=== PATIENT | male | born 1950 | race Caucasian/White ===

== ENCOUNTER 2017-05-03 13:39 | Emergency (ER) | payer MEDICARE, MEDICAID ==
[~2017-05-03] VITALS: Ht 177.8 cm; Wt 109.1 kg
[2017-05-03 13:45] VITALS: BP 153/79
[2017-05-03] MEDS ORDERED: TETanus/Pertussis (Acell)/Diphther VAC/PF (Tdap-Adult) 0.5ml syringe IM ONE (14:15)
[2017-05-03] MEDS ORDERED: BUPIVAcaine 0.5% inj/PF 30 ml vial IJ ONE (14:15)
[2017-05-03] MEDS ORDERED: HYDROcodone/acetaminophen 10/325mg tab PO ONE (14:15)
[2017-05-03] MEDS ORDERED: bacitracin 15gm ointment TP STA (16:34)
[2017-05-03] MEDS ORDERED: cephalexin 250mg capsule PO ONE (16:35)
[2017-05-03] MEDS ORDERED: CEPH500C2 PO (16:38)
[2017-05-03] MEDS ORDERED: HYDR-565 PO (16:38)
[2017-05-03] MEDS ORDERED: NAPR-56 PO (16:38)
== END 2017-05-03 16:58 | disposition home or self-care (01) ==
LOC: ER 13:39
DX: S62.511A Displaced fracture of proximal phalanx of right thumb, initial encounter for closed fracture (principal); S61.011A Laceration without foreign body of right thumb without damage to nail, initial encounter; E78.00 Pure hypercholesterolemia, unspecified; M19.90 Unspecified osteoarthritis, unspecified site; Z88.1 Allergy status to other antibiotic agents; Z98.890 Other specified postprocedural states; Z79.899 Other long term (current) drug therapy; W31.2XXA Contact with powered woodworking and forming machines, initial encounter; Y93.89 Activity, other specified; Y92.89 Other specified places as the place of occurrence of the external cause; Y99.8 Other external cause status
CPT/HCPCS: 29125; 73140; 90471; 90715; 99284; A6255; A6449; J3490; 12002; 96372; 96374

== ENCOUNTER 2017-05-13 13:56 | Outpatient (CLI) | payer MEDICARE, MEDICAID ==
[~2017-05-13 13:56] MED LIST: CEPH500C2 PO; HYDR-565 PO; NAPR-56 PO
[2017-05-13 14:09] VITALS: BP 139/79
== END 2017-05-13 14:50 | disposition home or self-care (01) ==
LOC: ORTHO 13:56
PROVIDERS: ATTEND Nurse Practitioner Family
DX: S61.011A Laceration without foreign body of right thumb without damage to nail, initial encounter (principal); E78.00 Pure hypercholesterolemia, unspecified; G89.29 Other chronic pain; J44.9 Chronic obstructive pulmonary disease, unspecified; M06.9 Rheumatoid arthritis, unspecified; Z88.0 Allergy status to penicillin; X58.XXXA Exposure to other specified factors, initial encounter; Y93.89 Activity, other specified; Y92.89 Other specified places as the place of occurrence of the external cause; Y99.8 Other external cause status
CPT/HCPCS: 29125; A6449

== ENCOUNTER 2017-05-27 13:06 | Outpatient (CLI) | payer MEDICARE, MEDICAID ==
[2017-05-27 13:11] VITALS: BP 138/75
== END 2017-05-27 13:50 | disposition home or self-care (01) ==
LOC: ORTHO 13:06
PROVIDERS: ATTEND Nurse Practitioner Family
DX: S61.011D Laceration without foreign body of right thumb without damage to nail, subsequent encounter (principal); E78.00 Pure hypercholesterolemia, unspecified; G89.29 Other chronic pain; J44.9 Chronic obstructive pulmonary disease, unspecified; M06.9 Rheumatoid arthritis, unspecified; Z88.0 Allergy status to penicillin; X58.XXXD Exposure to other specified factors, subsequent encounter
CPT/HCPCS: 29260; 73140

== ENCOUNTER 2017-05-28 14:31 | Outpatient (CLI) | payer MEDICARE, MEDICAID ==
[~2017-05-28] VITALS: Ht 177.8 cm; Wt 109.8 kg
[2017-05-28 14:30] VITALS: BP 130/84
== END 2017-05-28 15:05 | disposition home or self-care (01) ==
LOC: ORTHO 14:31
PROVIDERS: ATTEND Nurse Practitioner Family
DX: Z01.818 Encounter for other preprocedural examination (principal); S62.609 Fracture of unspecified phalanx of unspecified finger; S61.011D Laceration without foreign body of right thumb without damage to nail, subsequent encounter; E78.00 Pure hypercholesterolemia, unspecified; G89.29 Other chronic pain; J44.9 Chronic obstructive pulmonary disease, unspecified; K21.9 Gastro-esophageal reflux disease without esophagitis; Z87.11 Personal history of peptic ulcer disease; Z88.0 Allergy status to penicillin; Z91.19 Patient's noncompliance with other medical treatment and regimen; X58.XXXD Exposure to other specified factors, subsequent encounter
CPT/HCPCS: 99214

== ENCOUNTER 2017-06-20 10:14 | Outpatient (CLI) | payer MEDICARE, MEDICAID ==
[2017-06-20 10:29] VITALS: BP 148/90
== END 2017-06-20 11:00 | disposition home or self-care (01) ==
LOC: ORTHO 10:14
PROVIDERS: ATTEND Nurse Practitioner Family
DX: Z01.818 Encounter for other preprocedural examination (principal); S61.011D Laceration without foreign body of right thumb without damage to nail, subsequent encounter; E78.00 Pure hypercholesterolemia, unspecified; G89.29 Other chronic pain; J44.9 Chronic obstructive pulmonary disease, unspecified; M06.9 Rheumatoid arthritis, unspecified; Z88.0 Allergy status to penicillin; Z91.19 Patient's noncompliance with other medical treatment and regimen; Z79.899 Other long term (current) drug therapy; X58.XXXD Exposure to other specified factors, subsequent encounter
CPT/HCPCS: 73140; 99213

== ENCOUNTER 2017-07-11 10:25 | Outpatient (CLI) | payer MEDICARE, MEDICAID ==
[2017-07-11 10:24] VITALS: BP 139/81
== END 2017-07-11 11:00 | disposition home or self-care (01) ==
LOC: ORTHO 10:25
PROVIDERS: ATTEND Nurse Practitioner Family
DX: Z01.818 Encounter for other preprocedural examination (principal); S62.609D Fracture of unspecified phalanx of unspecified finger, subsequent encounter for fracture with routine healing; E78.00 Pure hypercholesterolemia, unspecified; G89.29 Other chronic pain; J44.9 Chronic obstructive pulmonary disease, unspecified; M06.9 Rheumatoid arthritis, unspecified; Z88.0 Allergy status to penicillin; Z91.19 Patient's noncompliance with other medical treatment and regimen; X58.XXXD Exposure to other specified factors, subsequent encounter
CPT/HCPCS: 73140; 99212

== ENCOUNTER 2018-08-17 17:01 | Inpatient (IN) | payer MEDICARE, MEDICAID ==
[~2018-08-17] VITALS: Ht 177.8 cm; Wt 77.0 kg
--- NOTE | 2018-08-17 17:52 | NUR ---
Patient ambulated to room from lobby. Patient don gown, on cessation systems outreach specialist. Abd distended and firm. Patient reports pain 10/10. Patient report last normal BM yesterday. Patient sitting on edge of bed for comfort.
[2018-08-17] MEDS ORDERED: morphine 4 MG/ML inj SYRINge IV ONE (17:55)
[2018-08-17] MEDS ORDERED: ondansetron/PF 4mg/2ml inj IV ONE (17:55)
[2018-08-17 18:10] LABS: RED BLOOD COUNT 2.97 X10'6 (4.70-6.10)
[2018-08-17 18:16] LABS: ALANINE AMINOTRANSFERASE 24 U/L (12-78); ALBUMIN 3.4 G/DL (3.4-5.0); ALBUMIN/GLOBULIN RATIO 0.9 (1.1-1.5); ALKALINE PHOSPHATASE 89 IU/L (46-116); ANION GAP 8 (8-16); ASPARTATE AMINO TRANSFERASE 28 U/L (10-37); BILIRUBIN,TOTAL 0.7 MG/DL (0.1-1.0); BLOOD UREA NITROGEN 11 MG/DL (7-18); CALCIUM 8.9 MG/DL (8.5-10.1); CHLORIDE 104 MMOL/L (99-107); GLUCOSE 116 MG/DL (70-104); LIPASE 60 U/L (73-393); POTASSIUM 4.4 MMOL/L (3.5-5.1); SODIUM 139 MMOL/L (135-145); TOTAL PROTEIN 7.4 G/DL (6.4-8.2); eGFR 66 ML/MIN
[2018-08-17 18:17] LABS: INR 1.2 INR
[2018-08-17 18:19] LABS: PARTIAL THROMBOPLASTIN TIME 30 SECONDS (22-32)
[2018-08-17] MEDS ORDERED: HYDROmorphone 1 mg/ml syringe IV ONE (18:30)
[2018-08-17 18:39] LABS: HEMATOCRIT 28.3 % (42.0-52.0); HEMOGLOBIN 8.8 g/dl (14.0-17.9); MEAN CORPUSCULAR VOLUME 95.2 FL (78-98); WHITE BLOOD COUNT 175.2 X10'3 (4.5-11.0)
[2018-08-17 18:40] LABS: MEAN CORPUSCULAR HEMOGLOBIN 29.6 PG (27.0-31.0); MEAN CORPUSCULAR HGB CONC 31.1 g/dL (33.0-36.5); MEAN PLATELET VOLUME 10.3 FL (7.4-10.4); PLATELET COUNT 643 X10'3 (140-440); RED CELL DISTRIBUTION WIDTH 16.7 % (11.5-14.5)
[2018-08-17] MEDS ORDERED: normal saline 1000ML IV soln IVB ONE (18:40)
[2018-08-17 19:08] LABS: ANISOCYTOSIS 1+; NUCLEATED RED BLOOD CELLS 3 /100WBC (0-0); PLATELET ESTIMATE INCREASED; TOTAL CELLS COUNTED 100
[2018-08-17 19:09] LABS: GIANT PLATELET FEW; SMUDGE CELLS 1+
[2018-08-17 19:10] LABS: POLYCHROMASIA 1+
[2018-08-17] MEDS ORDERED: iohexol 350MG/ML 100ml bottle IV ONE (19:59)
[2018-08-17] MEDS: normal saline 1000ml 1,000 ML IV SCH (21:03)
[2018-08-17] MEDS ORDERED: HYDROmorphone 1 mg/ml syringe IV PRN (21:05)
[2018-08-17] MEDS ORDERED: HYDROmorphone inj. 0.5 MG/0.5 ML DISP.SYRIN IV PRN (21:05)
[2018-08-17] MEDS ORDERED: acetaminophen 325mg tablet PO PRN (21:05)
[2018-08-17] MEDS ORDERED: ondansetron/PF 4mg/2ml inj IV PRN (21:05)
[2018-08-17] MEDS ORDERED: vancomycin/NS 1 GM ADD-VANTAGE 250 ML IV ONE (21:45)
[2018-08-17] MEDS ORDERED: midazolam 2 mg/2 ml injection ONE (22:11)
[2018-08-17] MEDS ORDERED: fentaNYL /PF 50mcg/ml 5ml ampule ONE (22:11)
[2018-08-17] MEDS ORDERED: gentamicin 40 MG/1 ML inj ONE (22:18)
[2018-08-17] MEDS ORDERED: clindamycin phosphate 150mg/ml inj. ONE (22:18)
[2018-08-17] MEDS ORDERED: phenylephrine 10mg/ml inj. ONE (22:22)
[2018-08-17] MEDS ORDERED: LIDOcaine 2% (20mg/ml) 5ml vial ONE (22:22)
[2018-08-17] MEDS ORDERED: rocuronium 10mg/ml inj IV ONE (22:22)
[2018-08-17] MEDS ORDERED: LIDOcaine 1%/PF 5ML 10 MG/ML VIAL ONE (22:22)
[2018-08-17] MEDS ORDERED: epiNEPHrine 1 mg/ml inj ONE (22:22)
[2018-08-17] MEDS ORDERED: etomidate 2mg/ml inj. ONE (22:22)
[2018-08-17] MEDS ORDERED: sevoflurane 250ml liquid IH ONE (22:51)
[2018-08-17] MEDS ORDERED: ondansetron/PF 4mg/2ml inj ONE (22:51)
[2018-08-18] VITALS (22 sets, daily range): BP systolic 100–195; BP diastolic 44–137
[2018-08-18 00:01] LABS: ISTAT CREATININE 0.9 mg/dL (0.8-1.3); ISTAT HGB 9.2 g/dl (14.0-18.0); ISTAT IONIZED CALCIUM 1.1 mmol/L (1.03-1.32); ISTAT K 4.1 mmol/L (3.5-5.1); POC BUN/CREATININE RATIO 11.1 (5.4-32.0)
[2018-08-18] MEDS ORDERED: sugammadex 200mg/2ml injection IV ONE (00:37)
[2018-08-18] MEDS ORDERED: morphine 10mg/ml inj. ONE (00:51)
[2018-08-18] MEDS ORDERED: potassium CL 20mEq in D5-1/2NS 1,000 ML IV SCH (00:59)
[2018-08-18] MEDS ORDERED: CADD PCA waste documentation MC PRN (01:00)
[2018-08-18] MEDS ORDERED: ondansetron/PF 4mg/2ml inj IV PRN (01:00)
[2018-08-18] MEDS ORDERED: naloxone 0.4 mg/ml inj IV PRN (01:00)
[2018-08-18] MEDS ORDERED: fentaNYL/PF 50MCG/1 ML 2ML syringe ONE (01:05)
[2018-08-18] MEDS ORDERED: nitroGLYCERIN-Tridil 50MG/D5W 250 ML IV PRN (01:25)
[2018-08-18] MEDS ORDERED: nitroGLYCERIN-Tridil 50MG/D5W 250 ML IV ONE (01:25)
[2018-08-18 01:53] LABS: HEMATOCRIT 26.3 % (42.0-52.0); MEAN CORPUSCULAR HEMOGLOBIN 28.7 PG (27.0-31.0); MEAN CORPUSCULAR HGB CONC 30.4 g/dL (33.0-36.5); MEAN CORPUSCULAR VOLUME 94.4 FL (78-98); MEAN PLATELET VOLUME 10.3 FL (7.4-10.4); PLATELET COUNT 427 X10'3 (140-440); RED BLOOD COUNT 2.78 X10'6 (4.70-6.10); RED CELL DISTRIBUTION WIDTH 16.6 % (11.5-14.5)
[2018-08-18 01:55] LABS: ALANINE AMINOTRANSFERASE 17 U/L (12-78); ALBUMIN 2.9 G/DL (3.4-5.0); ALKALINE PHOSPHATASE 67 IU/L (46-116); ANION GAP 10 (8-16); ASPARTATE AMINO TRANSFERASE 20 U/L (10-37); BILIRUBIN,TOTAL 0.3 MG/DL (0.1-1.0); BLOOD UREA NITROGEN 12 MG/DL (7-18); BUN/CREATININE RATIO 10.4 (5.4-32.0); CALCIUM 7.5 MG/DL (8.5-10.1); CHLORIDE 110 MMOL/L (99-107); CREATININE 1.15 MG/DL (0.60-1.10); GLUCOSE 155 MG/DL (70-104); MAGNESIUM 1.5 MG/DL (1.5-2.4); PHOSPHORUS 4.7 MG/DL (2.3-4.5); POTASSIUM 4.5 MMOL/L (3.5-5.1); SODIUM 141 MMOL/L (135-145); TOTAL CARBON DIOXIDE 20.9 MMOL/L (24-32); TOTAL PROTEIN 5.8 G/DL (6.4-8.2); eGFR 63 ML/MIN
[2018-08-18 01:56] LABS: INR 1.3 INR; PARTIAL THROMBOPLASTIN TIME 34 SECONDS (22-32)
[2018-08-18] MEDS: HYDROmorphone/NS 1 mg/ml CADD 50 ML IV SCH ×7 (01:58→13:00)
--- NOTE | 2018-08-18 02:00 | NUR ---
PT arrived from OR via ICU bed around 0130. Received bedside report from Heidy RIVERA. PT placed on bedside monitor. PT has A-Line to RT radial artery, transduced to pressure tubing. Has Introducer with double lumen CVL to RIJ. Drag to midline ABD is CDI. LUCITA in place with serosanguineous drainage noted. PT hypertensive, received verbal order from DR Garza to start Tridil gtt once PT gets settles to keep SBP below 140, Tridil is running and titrating as PT tolerated. Dilaudid CADD set up and PT educated on how to use. PT is receiving 5L O2 to NC, tolerating well O2 sat >95%. Garrido draining to gravity. Bed is locked and low. Call light is within reach. Will continue to monitor.
[2018-08-18 02:10] LABS: WHITE BLOOD COUNT 137.2 X10'3 (4.5-11.0)
[2018-08-18 02:53] LABS: NUCLEATED RED BLOOD CELLS 4 /100WBC (0-0); TOTAL CELLS COUNTED 100
[2018-08-18 02:54] LABS: ACANTHOCYTES FEW; ANISOCYTOSIS 1+; PLATELET ESTIMATE NORMAL
[2018-08-18 02:55] LABS: GIANT PLATELET FEW; LARGE PLATELETS FEW; SCHISTOCYTES FEW
[2018-08-18] MEDS: dextrose 5%-1/2 normal saline 1,000 ML IV SCH ×2 (02:55→06:47)
--- NOTE | 2018-08-18 06:30 | NUR ---
Patient in room CICU 2014. I have received report from Taylor RIVERA and had the opportunity to ask questions and assume patient care.
--- NOTE | 2018-08-18 06:39 | NUR ---
Problems reprioritized. Patient report given, questions answered & plan of care reviewed with Billie RIVERA.
[2018-08-18 06:59] LABS: MEAN PLATELET VOLUME 10.6 FL (7.4-10.4); RED CELL DISTRIBUTION WIDTH 16.7 % (11.5-14.5)
[2018-08-18 07:02] LABS: HEMATOCRIT 25.4 % (42.0-52.0); HEMOGLOBIN 7.7 g/dl (14.0-17.9); MEAN CORPUSCULAR HEMOGLOBIN 28.6 PG (27.0-31.0); MEAN CORPUSCULAR HGB CONC 30.5 g/dL (33.0-36.5); MEAN CORPUSCULAR VOLUME 93.6 FL (78-98); PLATELET COUNT 421 X10'3 (140-440); RED BLOOD COUNT 2.71 X10'6 (4.70-6.10)
[2018-08-18] MEDS: normal saline 1000ml 1,000 ML IV SCH (07:03)
[2018-08-18 07:47] LABS: WHITE BLOOD COUNT 124.8 X10'3 (4.5-11.0)
[2018-08-18] MEDS ORDERED: ceFAZolin inj. 1,000 MG in dextrose 5%-water 50ml 50 ML IV SCH (08:00)
[2018-08-18] MEDS ORDERED: ceFAZolin 1GM/D5W- ADD-VANTAGE 50 ML IV SCH (08:00)
[2018-08-18 08:01] LABS: ANISOCYTOSIS 1+; NUCLEATED RED BLOOD CELLS 2 /100WBC (0-0); PLATELET ESTIMATE NORMAL; TOTAL CELLS COUNTED 100
[2018-08-18 08:02] LABS: LARGE PLATELETS FEW
[2018-08-18] MEDS ORDERED: normal saline 1000ml 1,000 ML IV SCH (10:50)
[2018-08-18] MEDS ORDERED: allopurinol 300 MG tablet PO ONE ×2 (10:50→16:00)
[2018-08-18] MEDS ORDERED: TRAM50TA2 PO (12:16)
[2018-08-18] MEDS ORDERED: ATOR40TA72 PO (12:16)
[2018-08-18] MEDS ORDERED: BUDE10.2 IH (12:17)
[2018-08-18] MEDS ORDERED: GABA-532 PO (12:17)
[2018-08-18] MEDS ORDERED: ALBU18HF2 IH (12:19)
[2018-08-18] MEDS ORDERED: OMEP40CA37 PO (12:20)
[2018-08-18] MEDS ORDERED: LORA10TA7 PO (12:20)
[2018-08-18] MEDS ORDERED: CELE-85 PO (12:20)
[2018-08-18] MEDS ORDERED: GUAI400T77 PO (12:21)
[2018-08-18] MEDS ORDERED: ACET-2778 PO (12:21)
[2018-08-18] MEDS ORDERED: ALBU2.5V13 NEB (12:24)
--- NOTE | 2018-08-18 13:45 | NUR ---
Problems reprioritized. Patient report given, questions answered & plan of care reviewed with Mihaela RIVERA at [facility] Oncology floor.
[2018-08-18 14:36] LABS: HEMATOCRIT 28.7 % (42.0-52.0)
[2018-08-18 14:37] LABS: HEMOGLOBIN 8.8 g/dl (14.0-17.9); MEAN CORPUSCULAR HEMOGLOBIN 28.1 PG (27.0-31.0); MEAN CORPUSCULAR HGB CONC 30.5 g/dL (33.0-36.5); MEAN PLATELET VOLUME 10.6 FL (7.4-10.4); PLATELET COUNT 499 X10'3 (140-440); RED BLOOD COUNT 3.12 X10'6 (4.70-6.10)
[2018-08-18 14:50] LABS: WHITE BLOOD COUNT 135.5 X10'3 (4.5-11.0)
[2018-08-18] MEDS ORDERED: HYDROmorphone/NS 1 mg/ml CADD 50 ML IV SCH (15:00)
[2018-08-18] MEDS ORDERED: HYDR500C18 PO (15:32)
[2018-08-18] MEDS ORDERED: CADD PCA waste documentation MC (15:32)
[2018-08-18] MEDS ORDERED: ZOF4I IV (15:32)
[2018-08-18] MEDS ORDERED: ALLO300T8 PO (15:32)
[2018-08-18 16:07] LABS: NUCLEATED RED BLOOD CELLS 5 /100WBC (0-0); TOTAL CELLS COUNTED 100
[2018-08-18 16:09] LABS: GIANT PLATELET FEW; LARGE PLATELETS FEW; PLATELET ESTIMATE NORMAL
[2018-08-18 16:13] LABS: ANISOCYTOSIS 1+
[2018-08-19] MEDS ORDERED: allopurinol 300 MG tablet PO SCH (08:30)
== END 2018-08-18 16:47 | disposition short-term general hospital (02) | DRG 799 ==
LOC: ER 17:02 → CICU 2S 22:41 → CMPBEDREQ 23:35
PROVIDERS: ADMIT Internal Medicine Critical Care Medicine; ATTEND Internal Medicine Critical Care Medicine
PROC: 30233N1 Transfusion of Nonautologous Red Blood Cells into Peripheral Vein, Percutaneous Approach (ICD-10-PCS; 2018-08-17)
PROC: BW211ZZ Computerized Tomography (CT Scan) of Abdomen and Pelvis using Low Osmolar Contrast (ICD-10-PCS; 2018-08-17)
PROC: 02HV33Z Insertion of Infusion Device into Superior Vena Cava, Percutaneous Approach (ICD-10-PCS; 2018-08-17)
PROC: 07TP0ZZ Resection of Spleen, Open Approach (ICD-10-PCS; principal; 2018-08-17 22:51)
PROC: 30233N1 Transfusion of Nonautologous Red Blood Cells into Peripheral Vein, Percutaneous Approach (ICD-10-PCS; 2018-08-18)
DX: D73.5 Infarction of spleen (principal); K66.1 Hemoperitoneum; E88.3 Tumor lysis syndrome; C92.10 Chronic myeloid leukemia, BCR/ABL-positive, not having achieved remission; D64.9 Anemia, unspecified; E78.00 Pure hypercholesterolemia, unspecified; G89.29 Other chronic pain; M19.90 Unspecified osteoarthritis, unspecified site; M54.9 Dorsalgia, unspecified; R58 Hemorrhage, not elsewhere classified; E78.5 Hyperlipidemia, unspecified; J44.9 Chronic obstructive pulmonary disease, unspecified; K21.9 Gastro-esophageal reflux disease without esophagitis; K74.60 Unspecified cirrhosis of liver; Z88.1 Allergy status to other antibiotic agents; Z79.51 Long term (current) use of inhaled steroids; Z79.899 Other long term (current) drug therapy; Z87.11 Personal history of peptic ulcer disease; Z80.0 Family history of malignant neoplasm of digestive organs
CPT/HCPCS: 36415; 71045; 74176; 74177; 80047; 80053; 82948; 83605; 83690; 83735; 84100; 84145; 84550; 85025; 85610; 85730; 86885; 86900; 86901; 86920; 87070; 96374; 96375; 99291; A6251; A6257; A6258; A6449; A7000; C1751; C1758; C9399; G0378; J0171; J0690; J1170; J1580; J1644; J2001; J2250; J2270; J2370; J2405; J3010; J3490; J7030; J7060; J7120; P9016; Q9967

== ENCOUNTER 2018-08-28 10:06 | Outpatient (CLI) | payer MEDICARE, MEDICAID ==
[~2018-08-28 10:06] MED LIST changes: +ACET-2778 PO; +ALBU18HF2 IH; +ALBU2.5V13 NEB; +ALLO300T8 PO; +ATOR40TA72 PO; +BUDE10.2 IH; +CADD PCA waste documentation MC; +CELE-85 PO; -CEPH500C2 PO; +GABA-532 PO; +GUAI400T77 PO; -HYDR-565 PO; +HYDR500C18 PO; +LORA10TA7 PO; -NAPR-56 PO; +OMEP40CA37 PO; +TRAM50TA2 PO; +ZOF4I IV
== END 2018-08-28 23:59 | disposition home or self-care (01) ==
LOC: RAD 10:06
PROVIDERS: ATTEND Internal Medicine Hematology & Oncology
DX: R00.0 Tachycardia, unspecified (principal); C92.Z0 Other myeloid leukemia not having achieved remission; J44.9 Chronic obstructive pulmonary disease, unspecified; Z87.891 Personal history of nicotine dependence
CPT/HCPCS: 93005

== ENCOUNTER 2019-05-05 14:16 | Outpatient (CLI) | payer MEDICARE, MEDICAID ==
[~2019-05-05] VITALS: Ht 177.8 cm; Wt 105.2 kg
[~2019-05-05 14:16] MED LIST changes: +OMEP40CA13 PO; -OMEP40CA37 PO
[2019-05-05] MEDS ORDERED: albuterol 2.5 MG/3 ML nebule NEB ONE (14:45)
== END 2019-05-05 23:59 | disposition home or self-care (01) ==
LOC: RT 14:16
PROVIDERS: ATTEND Nurse Practitioner
DX: J98.8 Other specified respiratory disorders (principal); R06.00 Dyspnea, unspecified; F17.210 Nicotine dependence, cigarettes, uncomplicated
CPT/HCPCS: 94060; 94760

== ENCOUNTER 2021-04-26 09:07 | Day surgery (SDC) | payer MEDICARE, MEDICAID ==
[~2021-04-26] VITALS: Ht 177.8 cm; Wt 95.5 kg
[~2021-04-26 09:07] MED LIST changes: -GUAI400T77 PO; +GUAI400T92 PO; -OMEP40CA13 PO; +OMEP40CA21 PO
[2021-04-26] MEDS ORDERED: albumin 25% 100mL bottle x 1 IV PRN (09:35)
[2021-04-26 09:45] VITALS: BP 118/67
[2021-04-26] MEDS ORDERED: METO-292 PO (10:03)
[2021-04-26] MEDS ORDERED: BALS60OI (10:03)
[2021-04-26] MEDS ORDERED: FLUTICASONE NAS (10:03)
[2021-04-26] MEDS ORDERED: FLO0.4C PO (10:03)
[2021-04-26] MEDS ORDERED: FURO20TA4 PO (10:03)
[2021-04-26] MEDS ORDERED: CLOT30CR24 (10:03)
[2021-04-26] MEDS ORDERED: LEVO50TA8 PO (10:03)
[2021-04-26] MEDS ORDERED: FAMO20TA8 PO (10:03)
[2021-04-26] MEDS ORDERED: FERR325T35 PO (10:03)
== END 2021-04-26 11:05 | disposition home or self-care (01) ==
LOC: SSTAY O 09:07
PROVIDERS: ATTEND Radiology Diagnostic Radiology
DX: J90 Pleural effusion, not elsewhere classified (principal); Z53.8 Procedure and treatment not carried out for other reasons; E78.00 Pure hypercholesterolemia, unspecified; J44.9 Chronic obstructive pulmonary disease, unspecified; K21.9 Gastro-esophageal reflux disease without esophagitis; G89.29 Other chronic pain; M19.90 Unspecified osteoarthritis, unspecified site; N40.0 Benign prostatic hyperplasia without lower urinary tract symptoms; Z20.822 Contact with and (suspected) exposure to COVID-19; Z87.11 Personal history of peptic ulcer disease; Z98.890 Other specified postprocedural states; Z90.81 Acquired absence of spleen; Z87.891 Personal history of nicotine dependence; Z88.1 Allergy status to other antibiotic agents; Z79.899 Other long term (current) drug therapy
CPT/HCPCS: 76604; 87635; C9803; 32555

== ENCOUNTER 2022-12-26 10:25 | Emergency (ER) | payer MEDICARE, MEDICAID ==
[~2022-12-26] VITALS: Ht 170.2 cm; Wt 104.5 kg
[~2022-12-26 10:25] MED LIST changes: -ACET-2778 PO; -ALBU2.5V13 NEB; -ALLO300T8 PO; +BOSU500T PO; -CADD PCA waste documentation MC; -CELE-85 PO; +CLOT30CR24 TOP; +DOXY100T2 PO; +FAMO20TA8 PO; +FERR325T35 PO; +FLO0.4C PO; +FLUT16SP2 BOTHNARES; +FOLI1TAB27 PO; +FURO20TA4 PO; -GUAI400T92 PO; -HYDR500C18 PO; +LEVO50TA8 PO; -OMEP40CA21 PO; +POTA-207 PO; +PRED20TA PO; +TIOT4MIS2 INH; -ZOF4I IV
[2022-12-26 10:32] VITALS: BP 139/69; PULSE 80; RESP 16; TEMP 98; O2SAT 96
[2022-12-26] MEDS ORDERED: LIDOcaine 1% 30ml preserv. free vial IJ ONE (11:05)
== END 2022-12-26 13:30 | disposition home or self-care (01) ==
LOC: ER 10:26
DX: S60.415A Abrasion of left ring finger, initial encounter (principal); S00.81XA Abrasion of other part of head, initial encounter; S09.90XA Unspecified injury of head, initial encounter; X58.XXXA Exposure to other specified factors, initial encounter; Y93.9 Activity, unspecified; Y92.89 Other specified places as the place of occurrence of the external cause; Y99.8 Other external cause status
CPT/HCPCS: 70450; 73140; 99284; A6449

== ENCOUNTER 2025-03-23 19:56 | Emergency (ER) | payer MEDICARE, MEDICAID ==
[~2025-03-23] VITALS: Ht 170.2 cm; Wt 90.9 kg
[~2025-03-23 19:56] MED LIST changes: -FLO0.4C PO; +TAMS-55 PO
[2025-03-23 20:00] VITALS: BP 118/79; PULSE 100; RESP 15; O2SAT 92
--- NOTE | 2025-03-23 20:48 | RADIOLOGY REPORT ---
CLINICAL HISTORY: Shoulder Pain TECHNIQUE: 4 views of the right shoulder were obtained. COMPARISON: None FINDINGS: No acute fracture or dislocation is seen. No soft tissue abnormality is evident. There is a subacromial spur. IMPRESSION: NO ACUTE RADIOGRAPHIC ABNORMALITY OF THE RIGHT SHOULDER.
--- NOTE | 2025-03-23 22:58 | Physician Documentation ---
History of Present Illness ~ Chief Complaint: Shoulder pain Stated Complaint: SHOULDER PAIN Time Seen by MD: 22:54 Primary [facility] This is a 75-year-old male who presents with right shoulder pain after having a fall approximately five days prior, patient reports no other injuries from fall including no head strike or loss of consciousness. Patient reports not on blood thinners. Tetanus within 5 years?: Yes Medication Reconciliation Allergies: Coded Allergies: amoxicillin (Verified Allergy, Intermediate, rash on groin, 03/23/25) Scheduled Atorvastatin Calcium (Atorvastatin Calcium), 1 TAB PO DAILY, (Reported) Bosutinib (Bosulif), 1 TAB PO DAILY, (Reported) Budesonide/Formoterol Fumarate (Symbicort 160-4.5 Mcg Inhaler), 2 PUFFS IH BID, (Reported) Famotidine (Famotidine), 1 TAB PO BID, (Reported) Ferrous Sulfate (Ferosul), 1 TAB PO DAILY, (Reported) Folic Acid* (Folic Acid*), 1 TAB PO DAILY, (Reported) Furosemide (Furosemide), 4 TAB PO DAILY, (Reported) Gabapentin (Gabapentin), 1 CAP PO TID, (Reported) Levothyroxine Sodium (Levothyroxine Sodium), 1 TAB PO DAILY, (Reported) Loratadine (Loratadine), 1 TAB PO DAILY, (Reported) Potassium Chloride* (K-Dur*), 2 TAB PO BID, (Reported) Prednisone* (Prednisone*), 2 TAB PO DAILY Tamsulosin Hcl* (Flomax*), 1 CAP PO DAILY, (Reported) Tiotropium [place] (Spiriva Respimat), 2 PUFFS INH DAILY, (Reported) Scheduled PRN Albuterol Sulfate (Ventolin Hfa), 2 PUFFS IH Q4H PRN for SOB or wheezing, (Reported) Clotrimazole (Clotrimazole), 1 APPLIC TOP DAILY PRN for GROINS, (Reported) Doxycycline Hyclate (Doxycycline Hyclate), 1 TAB PO DAILY PRN for SORES, (Reported) Fluticasone Propionate (Flonase), 2 SPRAYS BOTHNARES DAILY PRN for allergies, (Reported) Tramadol Hcl (Tramadol Hcl), 2 TAB PO TID PRN for pain, (Reported) Past Medical History Past Medical History: High Cholesterol, Bronchitis, COPD, GERD, Peptic Ulcer Disease, Chronic Back Pain, Osteoarthritis Past Surgical History: orthopedic surgeries Other Past Surgical History: Splenectomy Patient History: Patient reports no known family medical history. Other Past Family History: Sister of colon cancer Alcohol Use: None Drug Use: none Lives with: Spouse Lives In: Home Occupation: retired Review of Systems ROS As stated above in the HPI, otherwise all systems are reviewed and negative. Physical Exam Vital Signs: Temperature: 96.3, Source: Temporal, Heart Rate: 100, Respiratory Rate: 15, BP: 118/79, Pulse Oximetry: 92, Weight: 90.900 Physical Exam VITALS: Reviewed and as above. GENERAL: Alert, nontoxic appearing, no apparent distress. RESPIRATORY: No increased work of breathing, no respiratory distress, speaking in full clear sentences CV: Brisk capillary refill to right hand, right radial pulse intact MUSCULOSKELETAL: No deformity or swelling to right shoulder, tenderness to palpation of the anterior shoulder, no tenderness to lateral or posterior shoulder SKIN: No erythema or ecchymosis to right shoulder NEURO: Sensation intact to right hand Progress Results/Orders Results/Orders Vital Signs 03/23/25 20:00 Temp 96.3 Pulse 100 Resp 15 B/P (MAP) 118/79 Pulse Ox 92 Medical Decision Making Additional information obtaine: family Findings This 75-year-old male presented with right shoulder pain after a fall five days prior, physical exam demonstrated tenderness to palpation of right anterior shoulder though reassuringly there was no erythema ecchymosis, or swelling to the shoulder, imaging did not demonstrate evidence of fracture or dislocation and it is reassuring the limb is neurovascularly intact. Suspect soft tissue injury to shoulder, patient will require follow up with primary care. No other injuries or acute symptoms or concerns were reported and no other injuries found on physical exam. Patient is otherwise well-appearing and appropriate for outpatient follow up. Patient and family member provided home care instructions return to care precautions, and follow up instructions which they verbalized understanding of. Differential Dx:Considerations: Include: AC separation, Adhesive capsulitis, arthritis, Bicipital tendonitis, Calcific tendonitis, Contusion, Dislocation, Fracture: Humerus, Fracture: Scapula, Fracture: Clavicle, Gallbladder Disease, Impingement syndrome, Myocardial infarction, Neurovascular Injury, Rotator cuff injury, SC dislocation, Sprain, Subacromial bursitis Departure Time of Disposition: 23:12 Disposition: 01 HOME / SELF CARE / HOMELESS Impression: Primary Impression: Shoulder pain Qualified Codes: M25.511 - Pain in right shoulder Condition: Improved Discharge Instructions: Shoulder Pain Additional Instructions: There was no evidence of a break or dislocation on your x-ray, this is likely a soft tissue injury to your shoulder. You may use your previously prescribed tramadol for pain, additionally you may use [id number] Tylenol as needed for pain. Please use the provided shoulder sling to rest your shoulder in for comfort though need to mobilize your shoulder several times a day to avoid developing a condition called frozen shoulder. Follow up as soon as possible with her primary care provider for further management and possible imaging. Please follow up with your primary care provider in the next few days. Please return to the emergency department for any new or worsening concerning symptoms. Referrals: NO PRIMARY CARE PROVIDER (PCP) Education Educated: Patient, Family Educated regarding: diagnosis, treatment, prognosis, need for follow up Signature Scribe Signature: No scribe Attestation: The note accurately reflects work and decisions made by me.DON Carey 03/23/25 23:14 KANG SCOTT Mar 23, 2025 22:58
[2025-03-23 23:16] VITALS: TEMP 96.3
== END 2025-03-23 23:27 | disposition home or self-care (01) ==
LOC: ER 19:57
DX: M25.511 Pain in right shoulder (principal); J44.9 Chronic obstructive pulmonary disease, unspecified; G89.29 Other chronic pain; K21.9 Gastro-esophageal reflux disease without esophagitis; E78.00 Pure hypercholesterolemia, unspecified; M19.90 Unspecified osteoarthritis, unspecified site; Z87.11 Personal history of peptic ulcer disease; Z90.81 Acquired absence of spleen; Z88.1 Allergy status to other antibiotic agents; Z79.899 Other long term (current) drug therapy; Z98.890 Other specified postprocedural states
CPT/HCPCS: 73030; 99283; A4565

== ENCOUNTER 2025-04-10 02:47 | Emergency (ER) | payer MEDICARE, MEDICAID ==
[~2025-04-10] VITALS: Ht 170.2 cm; Wt 100.0 kg
[2025-04-10 02:56] VITALS: BP 124/74; TEMP 99.3
--- NOTE | 2025-04-10 03:07 | Physician Documentation ---
History of Present Illness General Chief Complaint: See Chief Complaint Stated Complaint: SEE CHIEF COMPLAINT Time Seen by MD: 02:50 Primary Medical Doctor: [facility] History of Present Illness Initial Comments This is a 75-year-old gentleman who was brought to our facility at 2:38 a.m. in the morning because the staff at the "skilled" nursing facility named [facility] was utterly incapable of starting his IV. Evidently the gentleman was sent to the facility for continuation of IV antibiotics for his pneumonia that was originally treat it at [facility]. It is not clear why the incompetent staff decided to send the patient in the middle of the night. The patient himself has no somatic complaints whatsoever. He denies any pain. He denies any fever or chills. The gentleman unfortunately does not not know what antibiotics he is supposed to be receiving and why. Medication Reconciliation Allergies: Coded Allergies: amoxicillin (Verified Allergy, Intermediate, rash on groin, 03/23/25) Scheduled Atorvastatin Calcium (Atorvastatin Calcium), 1 TAB PO DAILY, (Reported) Bosutinib (Bosulif), 1 TAB PO DAILY, (Reported) Budesonide/Formoterol Fumarate (Symbicort 160-4.5 Mcg Inhaler), 2 PUFFS IH BID, (Reported) Famotidine (Famotidine), 1 TAB PO BID, (Reported) Ferrous Sulfate (Ferosul), 1 TAB PO DAILY, (Reported) Folic Acid* (Folic Acid*), 1 TAB PO DAILY, (Reported) Furosemide (Furosemide), 4 TAB PO DAILY, (Reported) Gabapentin (Gabapentin), 1 CAP PO TID, (Reported) Levothyroxine Sodium (Levothyroxine Sodium), 1 TAB PO DAILY, (Reported) Loratadine (Loratadine), 1 TAB PO DAILY, (Reported) Potassium Chloride* (K-Dur*), 2 TAB PO BID, (Reported) Prednisone* (Prednisone*), 2 TAB PO DAILY Tamsulosin Hcl* (Flomax*), 1 CAP PO DAILY, (Reported) Tiotropium [place] (Spiriva Respimat), 2 PUFFS INH DAILY, (Reported) Scheduled PRN Albuterol Sulfate (Ventolin Hfa), 2 PUFFS IH Q4H PRN for SOB or wheezing, (Reported) Clotrimazole (Clotrimazole), 1 APPLIC TOP DAILY PRN for GROINS, (Reported) Doxycycline Hyclate (Doxycycline Hyclate), 1 TAB PO DAILY PRN for SORES, (Reported) Fluticasone Propionate (Flonase), 2 SPRAYS BOTHNARES DAILY PRN for allergies, (Reported) Tramadol Hcl (Tramadol Hcl), 2 TAB PO TID PRN for pain, (Reported) Past Medical History Past Medical History: High Cholesterol, Bronchitis, COPD, GERD, Peptic Ulcer Disease, Chronic Back Pain, Osteoarthritis Past Surgical History: orthopedic surgeries Other Past Surgical History: Splenectomy Other Past Family History: Sister of colon cancer Smoking: Non-Smoker Alcohol Use: None Drug Use: none Lives with: Spouse Lives In: Home Occupation: retired Review of Systems ROS 10 point review of systems was performed and unless noted above in HPI is negative for acute process/complaint. Physical Exam Physical Exam Vital Signs: Temperature: 99.3, Source: Oral, Heart Rate: 86, Respiratory Rate: 16, BP: 124/74, Pulse Oximetry: 98, Weight: 100.000 Oxygen Flow Rate: 0 Physical Exam Physical examination: GENERAL: Awake, alert, oriented, GCS 15, no apparent distress, non-toxic appearing, answers questions, follows commands appropriately. Examined immediately upon arrival on EMS [facility] HEENT: Atraumatic, normocephalic, pupils equal, extraocular muscles intact Active gross movements, sclerae anicteric, mucus membranes moist, no stridor. NECK: Midline, no JVD CARDIOVASCULAR: Good skin perfusion without evidence of pallor, mottling. PULMONARY: Nonlabored, symmetric chest rise, no audible wheezing, no accessory muscle use, no respiratory distress, speaking in full sentences. GASTROINTESTINAL: Not distended. NEUROLOGIC: Lucid with normal mental status. Normal facial symmetry. Moves all extremities symmetrically and with purpose. No truncal ataxia. Speech is fluid without evidence of dysarthria or aphasia, no focal deficits appreciated. EXTREMITIES: Acute deformities Skin: warm, dry PSYCHIATRIC: Grumpy affect, normal insight, normal concentration. Focused exam: [] Progress Results/Orders Results/Orders Vital Signs 04/10/25 02:56 Temp 99.3 Pulse 86 Resp 16 B/P (MAP) 124/74 Pulse Ox 98 O2 Flow Rate 0 Medical Decision Making Additional information obtaine: other (EMS) Findings Facility Status: ED Holds, RME process The plan was discussed with the patient, who demonstrates clear understanding of the plan and is in agreement with the plan unless otherwise noted in the chart. All questions have been answered, all concerns were addressed unless otherwise documented. I was available throughout their ED stay for frequent reassessment and questions. Differential Diagnoses (considered and possible or likely): [At the top of the differential is the skill issue of the staff of the skilled" nursing facility. Unlikely to be poor vasculature. The patient has a no somatic complaints otherwise.] ??Differential Diagnoses (considered and unlikely, not requiring evaluation currently): [Denies any somatic complaints] MDM Data Please see [facility] for the following: Independent Historians and external Records Review. Historian: [Patient] Independent Historians: ?[Record review] Medication Management: [Reviewed medication list] Social History and determinants: [Reviewed] Please see the body of the note for the following: Any independent interpretations of ECG, imaging studies. All vitals signs/haemodynamics, ordered tests were independently reviewed and interpreted by myself. Nursing triage complaint and vitals reviewed, additional nursing notes were reviewed as available and I agree unless otherwise noted or documented in contradiction in the chart Vital Signs: Independently reviewed Labs: Independently interpreted Imaging: Independently interpreted Old Medical Records: Independently reviewed, see [facility] for relevant summary and information Additionally notably showing: [Hemodynamically stable] Tests considered but not ordered include: [Hematologic workup and imaging has been considered but does not appear to be necessary given clinical nature of d iagnosis] Social Determinants of Health Impact: Patient was evaluated in [facility] [place] to healthcare due to below par ratio of patient to medical providers. [] Comorbid Conditions Impacting Present Evaluation and Care/Treatment: [Multiple, see list] Management Discussions with other Healthcare Providers: [None] Treatment and Disposition Medication Management (Given or considered): []. See EMR for details Consideration for Hospitalization/Escalation/Deescalation of Care: Admission for observation has been considered, [however the patient is able to tolerate p.o., their symptoms are controlled, they are able to rely on oral medications, and their chief complaint/diagnosis can be managed on outpatient basis.] ?ED Course:?[IV was inserted by a qualified registered nurse in the emergency department.] ?Shared decision making:?[Patient is hemodynamically stable for discharge to the nursing facility with follow with their primary care provider. [ ] Specific and cautious return precautions provided and discussed with full understanding. Any incidental findings were also discussed and follow up recommendations given. [] All questions answered. Patient/family were able to verbalize back return preca utions. Patient/family agree to plan. Copies of imaging and laboratory studies were provided.] Code status:?FULL Please see the full Electronic Medical Record for full details of nursing documentation, medications list, other records of complete past medical history and conditions, vital signs, laboratory studies, and any radiologic study interpretations by radiologists. Portions of this note were completed using [employer] dictation software and as a result there may exist minor errors in spelling. I have reviewed elements of past family and social history and agree as included in note. Differential Diagnosis See body of the main note for differential diagnosis Departure Disposition: 03 [facility] Impression: Primary Impression: Need for intravenous access Condition: Improved Discharge Instructions: Peripheral Intravenous Catheter Placement, Adult, Care After Additional Instructions: Note to the skilled" nursing facility. You sent the patient to the emergency department at 2:38 a.m. in the morning because you were not able to start peripheral intravenous access for this is a patient. You are considered a "skilled" nursing facility. Please make sure to utilize the aforementioned skills in order to start peripheral IVs on your own rather than relying on emergency department providing you with the intravenous access. If your staff does not not possess sufficient skills, please assure appropriate training. At any rate, sending with the patient at 2:38 a.m. in the morning is not appropriate, as your failure does not constitute patient's emergency. Transporting him to the emergency department because of your lack of skill constitutes financial abuse. Additionally, should the patient require PICC line, you should request PICC line access during business hours when PICC line nurse is present at the facility. Logically, should you choose to utilize your intelligence, you should requests the procedure from the facility that originally transferred the patient to you in the 1st place. Referrals: NO PRIMARY CARE PROVIDER (PCP) Education Educated: Patient, Other Educated regarding: diagnosis, treatment, need for follow up Signature Scribe Signature: No scribe Attestation: The note accurately reflects work and decisions made by me.Baron Billy DO 04/10/25 03:10 BARON BILLY DO Apr 10, 2025 03:07
[2025-04-10 03:17] VITALS: PULSE 85; RESP 18; O2SAT 98
[2025-04-13] MEDS ORDERED: HYDR50TA4 PO (18:00)
== END 2025-04-10 03:19 ==
LOC: ER 02:47
DX: Z00.00 Encounter for general adult medical examination without abnormal findings (principal); J18.9 Pneumonia, unspecified organism; G89.29 Other chronic pain; E78.00 Pure hypercholesterolemia, unspecified; M19.90 Unspecified osteoarthritis, unspecified site; K21.9 Gastro-esophageal reflux disease without esophagitis; Z87.11 Personal history of peptic ulcer disease; Z88.1 Allergy status to other antibiotic agents; Z79.899 Other long term (current) drug therapy
CPT/HCPCS: 99283